=== PATIENT | female | born 2000 | race Caucasian/White ===

== ENCOUNTER 2023-12-25 12:14 | Emergency (ER) | payer OTHER ==
[~2023-12-25] VITALS: Ht 160 cm; Wt 68.9 kg
[2023-12-25 12:29] VITALS: BP 122/84; PULSE 73; RESP 20; TEMP 98.6; O2SAT 98
[2023-12-25 13:06] VITALS: O2SAT 98
[2023-12-25] MEDS: ONDANSETRON 4 MG/2 ML VIAL IVP ONE ×2 (13:15→13:42)
[2023-12-25] MEDS ORDERED: KETOROLAC 30 MG/ML VIAL IVP ONE (13:15)
[2023-12-25] MEDS ORDERED: NACL 0.9% 1,000 ML IV ONE (13:15)
[2023-12-25] MEDS ORDERED: LORazepam 2 MG/ML VIAL IVP ONE (13:55)
[2023-12-25] MEDS ORDERED: LORazepam 2 MG/ML VIAL ONE (14:45)
[2023-12-25] MEDS ORDERED: ONDA8TAB87 PO (15:43)
[2023-12-25] MEDS ORDERED: IBUP-2213 PO (15:43)
== END 2023-12-25 16:03 | disposition home or self-care (01) ==
LOC: MED 12:14
DX: R11.2 Nausea with vomiting, unspecified (principal); R42 Dizziness and giddiness; Z79.899 Other long term (current) drug therapy
CPT/HCPCS: 71045; 81002; 81025; 96361; 96374; 99283; J2405; J7030; J1885; J2060

== ENCOUNTER 2023-12-26 01:33 | Emergency (ER) | payer OTHER ==
[~2023-12-26] VITALS: Ht 160 cm; Wt 69.4 kg
[~2023-12-26 01:33] MED LIST: IBUP-2213 PO; ONDA8TAB87 PO
[2023-12-26 01:52] VITALS: PULSE 94; RESP 16; TEMP 97.6; O2SAT 100
== END 2023-12-26 05:17 | disposition home or self-care (01) ==
LOC: MED 01:33
DX: R07.0 Pain in throat (principal); Z79.899 Other long term (current) drug therapy
CPT/HCPCS: 70360; 81025; 87210; 99284